=== PATIENT | female | born 1970 | race Caucasian/White ===

== ENCOUNTER 2020-01-25 15:48 | Inpatient (IN) ==
[2020-01-25] MEDS ORDERED: Diclofenac Sodium [Voltaren] 4 GM TP PRN (23:25)
[2020-01-26] MEDS: Acetaminophen/Butalbital/CaffeineTABLET PO PRN ×3 (01:16→21:55)
[2020-01-26] MEDS: Furosemide 40 MG TABLET PO SCH ×2 (06:41→16:26)
[2020-01-26] MEDS ORDERED: BUPRENORPHINE SL SCH (09:00)
[2020-01-26] MEDS ORDERED: NALOXONE SL SCH (09:00)
[2020-01-26] MEDS: amLODIPine 5 MG TABLET PO SCH (09:19)
[2020-01-26] MEDS: Cyanocobalamin (B-12) 1,000 MCG TABLET PO SCH (09:19)
[2020-01-26] MEDS: predniSONE 10 MG TABLET PO SCH (09:19)
[2020-01-26] MEDS: tiZANidine 4 MG TABLET PO SCH ×4 (09:19→20:44)
[2020-01-26] MEDS: Gabapentin 300 MG CAPSULE PO SCH ×3 (09:19→20:45)
[2020-01-26] MEDS: Divalproex (24 HR) 250 MG TABLET PO SCH ×2 (09:19→20:44)
[2020-01-26] MEDS: FLUoxetine 20 MG CAPSULE PO SCH (09:19)
[2020-01-26] MEDS: Cholecalciferol (D-3) 1,000 UNIT (25MCG) TABLET PO SCH (09:19)
[2020-01-26] MEDS ORDERED: D5% in Water 1,000 ML IVC PRN (13:10)
[2020-01-26] MEDS ORDERED: Dextrose Gel 15 GM/37.5 ML TUBE PO PRN ×2 (13:10)
[2020-01-26] MEDS ORDERED: *HR* Dextrose 50 % in Water (Vial) 50 ML VIAL IVP PRN (13:10)
[2020-01-26] MEDS: Insulin LISPRO 300 UNITS/3 ML VIAL SQ SCH (16:24)
[2020-01-26] MEDS: BUPRENORPHINE SL SCH ×2 (16:32→20:44)
[2020-01-26] MEDS: NALOXONE SL SCH ×2 (16:32→20:44)
[2020-01-26] MEDS: Ipratropium/Albuterol Neb 3 ML IH SCH ×2 (17:41→20:17)
[2020-01-26] MEDS: Budesonide/Formoterol 160/4.5 1 PUFF INH IH SCH (20:18)
[2020-01-26] MEDS: QUEtiapine Fumarate 25 MG TABLET PO PRN (20:44)
[2020-01-26] MEDS: Melatonin 3 MG TABLET PO SCH (20:45)
[2020-01-26] MEDS: OLANZapine 5 MG TAB.RAPDIS PO SCH (20:45)
[2020-01-27] MEDS: Insulin LISPRO 300 UNITS/3 ML VIAL SQ SCH ×3 (07:51→16:39)
[2020-01-27] MEDS ORDERED: Lactulose Oral Soln 20 GM/30 ML UDC PO PRN (07:52)
[2020-01-27] MEDS: NALOXONE SL SCH ×3 (08:49→20:33)
[2020-01-27] MEDS: BUPRENORPHINE SL SCH ×3 (08:49→20:33)
[2020-01-27] MEDS: Nicotine 14 MG PATCH.TD24 TD SCH (08:50)
[2020-01-27] MEDS: Divalproex (24 HR) 250 MG TABLET PO SCH ×2 (08:51→20:33)
[2020-01-27] MEDS: Gabapentin 300 MG CAPSULE PO SCH ×3 (08:51→20:30)
[2020-01-27] MEDS: Cyanocobalamin (B-12) 1,000 MCG TABLET PO SCH (08:51)
[2020-01-27] MEDS: amLODIPine 5 MG TABLET PO SCH (08:51)
[2020-01-27] MEDS: predniSONE 10 MG TABLET PO SCH (08:51)
[2020-01-27] MEDS: Nystatin POWDER 30 GM BOTTLE TP SCH ×2 (08:52→20:34)
[2020-01-27] MEDS: Furosemide 40 MG TABLET PO SCH ×2 (08:52→16:38)
[2020-01-27] MEDS: FLUoxetine 20 MG CAPSULE PO SCH (08:52)
[2020-01-27] MEDS: tiZANidine 4 MG TABLET PO SCH ×4 (08:52→20:31)
[2020-01-27] MEDS: Cholecalciferol (D-3) 1,000 UNIT (25MCG) TABLET PO SCH (08:52)
[2020-01-27] MEDS: Budesonide/Formoterol 160/4.5 1 PUFF INH IH SCH ×2 (11:31→22:31)
[2020-01-27] MEDS: Ondansetron ODT 4 MG TAB.RAPDIS PO PRN ×2 (13:18→21:40)
[2020-01-27] MEDS: Acetaminophen/Butalbital/CaffeineTABLET PO PRN ×2 (13:18→21:40)
[2020-01-27] MEDS: Melatonin 3 MG TABLET PO SCH (20:31)
[2020-01-27] MEDS: OLANZapine 5 MG TAB.RAPDIS PO SCH (20:31)
[2020-01-27] MEDS: QUEtiapine Fumarate 25 MG TABLET PO PRN (20:32)
[2020-01-28] MEDS: Insulin LISPRO 300 UNITS/3 ML VIAL SQ SCH ×3 (09:32→16:40)
[2020-01-28] MEDS: Nicotine 14 MG PATCH.TD24 TD SCH (09:57)
[2020-01-28] MEDS: Furosemide 40 MG TABLET PO SCH ×2 (09:58→16:32)
[2020-01-28] MEDS: Cholecalciferol (D-3) 1,000 UNIT (25MCG) TABLET PO SCH (09:58)
[2020-01-28] MEDS: tiZANidine 4 MG TABLET PO SCH ×4 (09:59→21:21)
[2020-01-28] MEDS: Divalproex (24 HR) 250 MG TABLET PO SCH ×2 (09:59→21:20)
[2020-01-28] MEDS: predniSONE 10 MG TABLET PO SCH (09:59)
[2020-01-28] MEDS: amLODIPine 5 MG TABLET PO SCH (09:59)
[2020-01-28] MEDS: FLUoxetine 20 MG CAPSULE PO SCH (09:59)
[2020-01-28] MEDS: Gabapentin 300 MG CAPSULE PO SCH ×3 (09:59→21:19)
[2020-01-28] MEDS: Cyanocobalamin (B-12) 1,000 MCG TABLET PO SCH (09:59)
[2020-01-28] MEDS: NALOXONE SL SCH ×3 (10:01→21:28)
[2020-01-28] MEDS: Nystatin POWDER 30 GM BOTTLE TP SCH ×2 (10:01→21:21)
[2020-01-28] MEDS: BUPRENORPHINE SL SCH ×3 (10:01→21:28)
[2020-01-28] MEDS: Budesonide/Formoterol 160/4.5 1 PUFF INH IH SCH ×2 (10:20→20:29)
[2020-01-28] MEDS: Melatonin 3 MG TABLET PO SCH (21:20)
[2020-01-28] MEDS: OLANZapine 5 MG TAB.RAPDIS PO SCH (21:21)
[2020-01-28] MEDS: QUEtiapine Fumarate 25 MG TABLET PO PRN (21:28)
[2020-01-28] MEDS: Acetaminophen/Butalbital/CaffeineTABLET PO PRN (23:14)
[2020-01-29 06:36] LABS: Hematocrit 33.3 % (35.3-44.9); Hemoglobin 10.2 g/dL (11.5-15.4); Mean Corpuscular HGB Conc 30.6 g/dL (31.6-35.5); Mean Corpuscular Hemoglobin 26.5 pg (28.0-33.3); Mean Corpuscular Volume 86.5 fL (83.0-100.0); Mean Platelet Volume 9.8 fL (9.4-12.4); Platelet Count 315 K/mcL (140-400); Red Blood Count 3.85 M/mcL (3.82-4.97); Red Cell Distribution Width 17.7 % (11.5-14.5); White Blood Count 6.9 K/mcL (4.3-11.1)
[2020-01-29 06:54] LABS: BUN/Creatinine Ratio 32 (6-26); Blood Urea Nitrogen 25 mg/dL (6-20); Calcium 9.4 mg/dL (8.6-10.3); Carbon Dioxide 38 mEq/L (23-29); Chloride 97 mEq/L (98-107); Glucose 94 mg/dL (70-105); Magnesium 2.2 mg/dL (1.6-2.6); Osmolality,Calculated 298 (280-300); Potassium 4.1 mEq/L (3.5-5.1); Sodium 142 mEq/L (136-145); eGFR For African Americans > 60 (> 60); eGFR For Non-African Americans > 60 (> 60)
[2020-01-29] MEDS: Insulin LISPRO 300 UNITS/3 ML VIAL SQ SCH ×3 (07:53→16:22)
[2020-01-29] MEDS: BUPRENORPHINE SL SCH ×3 (09:04→20:31)
[2020-01-29] MEDS: NALOXONE SL SCH ×3 (09:04→20:31)
[2020-01-29] MEDS: Nicotine 14 MG PATCH.TD24 TD SCH (09:04)
[2020-01-29] MEDS: Furosemide 40 MG TABLET PO SCH ×2 (09:05→16:21)
[2020-01-29] MEDS: tiZANidine 4 MG TABLET PO SCH ×4 (09:05→20:19)
[2020-01-29] MEDS: Gabapentin 300 MG CAPSULE PO SCH ×3 (09:05→20:20)
[2020-01-29] MEDS: amLODIPine 5 MG TABLET PO SCH (09:05)
[2020-01-29] MEDS: FLUoxetine 20 MG CAPSULE PO SCH (09:05)
[2020-01-29] MEDS: Cholecalciferol (D-3) 1,000 UNIT (25MCG) TABLET PO SCH (09:06)
[2020-01-29] MEDS: Divalproex (24 HR) 250 MG TABLET PO SCH ×2 (09:06→20:19)
[2020-01-29] MEDS: Nystatin POWDER 30 GM BOTTLE TP SCH ×2 (09:07→20:29)
[2020-01-29] MEDS: Cyanocobalamin (B-12) 1,000 MCG TABLET PO SCH (09:07)
[2020-01-29] MEDS: Budesonide/Formoterol 160/4.5 1 PUFF INH IH SCH ×2 (09:19→22:14)
[2020-01-29] MEDS: OLANZapine 5 MG TAB.RAPDIS PO SCH (20:20)
[2020-01-29] MEDS: QUEtiapine Fumarate 25 MG TABLET PO PRN (20:20)
[2020-01-29] MEDS: Melatonin 3 MG TABLET PO SCH (20:23)
[2020-01-29] MEDS: Acetaminophen/Butalbital/CaffeineTABLET PO PRN (20:27)
[2020-01-30] MEDS: Insulin LISPRO 300 UNITS/3 ML VIAL SQ SCH ×3 (08:52→17:09)
[2020-01-30] MEDS: tiZANidine 4 MG TABLET PO SCH ×4 (08:53→20:47)
[2020-01-30] MEDS: amLODIPine 5 MG TABLET PO SCH (08:53)
[2020-01-30] MEDS: Nystatin SUSP 5 ML UD.LIQ PO SCH ×4 (08:53→20:46)
[2020-01-30] MEDS: FLUoxetine 20 MG CAPSULE PO SCH (08:53)
[2020-01-30] MEDS: Gabapentin 300 MG CAPSULE PO SCH ×3 (08:53→20:46)
[2020-01-30] MEDS: Cholecalciferol (D-3) 1,000 UNIT (25MCG) TABLET PO SCH (08:53)
[2020-01-30] MEDS: NALOXONE SL SCH ×3 (08:53→20:57)
[2020-01-30] MEDS: Budesonide/Formoterol 160/4.5 1 PUFF INH IH SCH ×2 (08:53→20:56)
[2020-01-30] MEDS: BUPRENORPHINE SL SCH ×3 (08:53→20:57)
[2020-01-30] MEDS: Furosemide 40 MG TABLET PO SCH ×2 (08:53→17:48)
[2020-01-30] MEDS: Nicotine 14 MG PATCH.TD24 TD SCH (08:54)
[2020-01-30] MEDS: Nystatin POWDER 30 GM BOTTLE TP SCH ×2 (08:54→20:47)
[2020-01-30] MEDS: Divalproex (24 HR) 250 MG TABLET PO SCH ×2 (08:54→20:43)
[2020-01-30] MEDS: Cyanocobalamin (B-12) 1,000 MCG TABLET PO SCH (08:54)
[2020-01-30] MEDS: Aspirin Enteric Coated 81 MG Tablet PO SCH (10:56)
[2020-01-30] MEDS: Melatonin 3 MG TABLET PO SCH (20:46)
[2020-01-30] MEDS: OLANZapine 5 MG TAB.RAPDIS PO SCH (20:47)
[2020-01-30] MEDS: Acetaminophen/Butalbital/CaffeineTABLET PO PRN (20:57)
[2020-01-30] MEDS: QUEtiapine Fumarate 25 MG TABLET PO PRN (20:57)
[2020-01-31] MEDS: Cyanocobalamin (B-12) 1,000 MCG TABLET PO SCH (08:23)
[2020-01-31] MEDS: FLUoxetine 20 MG CAPSULE PO SCH (08:23)
[2020-01-31] MEDS: amLODIPine 5 MG TABLET PO SCH (08:23)
[2020-01-31] MEDS: Divalproex (24 HR) 250 MG TABLET PO SCH ×2 (08:24→20:48)
[2020-01-31] MEDS: Gabapentin 300 MG CAPSULE PO SCH ×3 (08:24→20:49)
[2020-01-31] MEDS: Aspirin Enteric Coated 81 MG Tablet PO SCH (08:24)
[2020-01-31] MEDS: Cholecalciferol (D-3) 1,000 UNIT (25MCG) TABLET PO SCH (08:24)
[2020-01-31] MEDS: tiZANidine 4 MG TABLET PO SCH ×4 (08:24→20:49)
[2020-01-31] MEDS: Furosemide 40 MG TABLET PO SCH ×2 (08:24→17:08)
[2020-01-31] MEDS: Nicotine 14 MG PATCH.TD24 TD SCH (08:24)
[2020-01-31] MEDS: NALOXONE SL SCH ×3 (08:25→20:49)
[2020-01-31] MEDS: Insulin LISPRO 300 UNITS/3 ML VIAL SQ SCH ×3 (08:25→17:08)
[2020-01-31] MEDS: Nystatin SUSP 5 ML UD.LIQ PO SCH ×4 (08:25→22:09)
[2020-01-31] MEDS: Nystatin POWDER 30 GM BOTTLE TP SCH ×2 (08:25→20:53)
[2020-01-31] MEDS: BUPRENORPHINE SL SCH ×3 (08:25→20:49)
[2020-01-31] MEDS: Budesonide/Formoterol 160/4.5 1 PUFF INH IH SCH ×2 (09:51→19:14)
[2020-01-31] MEDS: Acetaminophen/Butalbital/CaffeineTABLET PO PRN (13:47)
[2020-01-31] MEDS: Melatonin 3 MG TABLET PO SCH (20:49)
[2020-01-31] MEDS: OLANZapine 5 MG TAB.RAPDIS PO SCH (20:49)
[2020-01-31] MEDS: QUEtiapine Fumarate 25 MG TABLET PO PRN (21:01)
[2020-02-01] MEDS: Acetaminophen/Butalbital/CaffeineTABLET PO PRN ×2 (00:29→20:36)
[2020-02-01 09:27] LABS: BUN/Creatinine Ratio 27 (6-26); Blood Urea Nitrogen 20 mg/dL (6-20); Calcium 9.4 mg/dL (8.6-10.3); Carbon Dioxide 34 mEq/L (23-29); Chloride 97 mEq/L (98-107); Glucose 102 mg/dL (70-105); Osmolality,Calculated 293 (280-300); Sodium 140 mEq/L (136-145); eGFR For African Americans > 60 (> 60); eGFR For Non-African Americans > 60 (> 60)
[2020-02-01] MEDS: amLODIPine 5 MG TABLET PO SCH (10:18)
[2020-02-01] MEDS: Cholecalciferol (D-3) 1,000 UNIT (25MCG) TABLET PO SCH (10:18)
[2020-02-01] MEDS: Gabapentin 300 MG CAPSULE PO SCH ×3 (10:19→20:37)
[2020-02-01] MEDS: tiZANidine 4 MG TABLET PO SCH ×4 (10:19→20:37)
[2020-02-01] MEDS: Cyanocobalamin (B-12) 1,000 MCG TABLET PO SCH (10:19)
[2020-02-01] MEDS: FLUoxetine 20 MG CAPSULE PO SCH (10:19)
[2020-02-01] MEDS: Furosemide 40 MG TABLET PO SCH ×2 (10:20→16:14)
[2020-02-01] MEDS: Aspirin Enteric Coated 81 MG Tablet PO SCH (10:20)
[2020-02-01] MEDS: Divalproex (24 HR) 250 MG TABLET PO SCH ×2 (10:20→20:37)
[2020-02-01] MEDS: Nystatin SUSP 5 ML UD.LIQ PO SCH ×4 (10:20→20:38)
[2020-02-01] MEDS: BUPRENORPHINE SL SCH ×3 (10:21→20:37)
[2020-02-01] MEDS: Nicotine 14 MG PATCH.TD24 TD SCH (10:21)
[2020-02-01] MEDS: NALOXONE SL SCH ×3 (10:21→20:37)
[2020-02-01] MEDS: Budesonide/Formoterol 160/4.5 1 PUFF INH IH SCH ×2 (10:23→20:47)
[2020-02-01] MEDS: Insulin LISPRO 300 UNITS/3 ML VIAL SQ SCH ×3 (10:43→16:25)
[2020-02-01] MEDS: Nystatin POWDER 30 GM BOTTLE TP SCH ×2 (10:46→20:38)
[2020-02-01] MEDS: QUEtiapine Fumarate 25 MG TABLET PO PRN (20:36)
[2020-02-01] MEDS: OLANZapine 5 MG TAB.RAPDIS PO SCH (20:36)
[2020-02-01] MEDS: Melatonin 3 MG TABLET PO SCH (20:37)
[2020-02-02] MEDS: Budesonide/Formoterol 160/4.5 1 PUFF INH IH SCH ×2 (08:04→21:17)
[2020-02-02] MEDS: Insulin LISPRO 300 UNITS/3 ML VIAL SQ SCH ×3 (09:15→16:03)
[2020-02-02] MEDS: Aspirin Enteric Coated 81 MG Tablet PO SCH (09:27)
[2020-02-02] MEDS: Divalproex (24 HR) 250 MG TABLET PO SCH ×2 (09:27→20:36)
[2020-02-02] MEDS: Gabapentin 300 MG CAPSULE PO SCH ×3 (09:27→20:34)
[2020-02-02] MEDS: FLUoxetine 20 MG CAPSULE PO SCH (09:27)
[2020-02-02] MEDS: Cholecalciferol (D-3) 1,000 UNIT (25MCG) TABLET PO SCH (09:27)
[2020-02-02] MEDS: Nystatin POWDER 30 GM BOTTLE TP SCH ×2 (09:28→20:38)
[2020-02-02] MEDS: tiZANidine 4 MG TABLET PO SCH ×5 (09:28→20:57)
[2020-02-02] MEDS: Cyanocobalamin (B-12) 1,000 MCG TABLET PO SCH (09:28)
[2020-02-02] MEDS: amLODIPine 5 MG TABLET PO SCH (09:28)
[2020-02-02] MEDS: Furosemide 40 MG TABLET PO SCH ×2 (09:28→17:24)
[2020-02-02] MEDS: Nystatin SUSP 5 ML UD.LIQ PO SCH ×4 (09:29→20:38)
[2020-02-02] MEDS: Nicotine 14 MG PATCH.TD24 TD SCH (09:29)
[2020-02-02] MEDS: BUPRENORPHINE SL SCH ×3 (09:42→20:34)
[2020-02-02] MEDS: NALOXONE SL SCH ×3 (09:42→20:34)
[2020-02-02] MEDS: OLANZapine 5 MG TAB.RAPDIS PO SCH (20:34)
[2020-02-02] MEDS: Melatonin 3 MG TABLET PO SCH (20:37)
[2020-02-02] MEDS: QUEtiapine Fumarate 25 MG TABLET PO PRN (21:00)
[2020-02-03] MEDS: Aspirin Enteric Coated 81 MG Tablet PO SCH (08:15)
[2020-02-03] MEDS: Furosemide 40 MG TABLET PO SCH ×2 (08:15→17:06)
[2020-02-03] MEDS: Gabapentin 300 MG CAPSULE PO SCH ×3 (08:15→19:48)
[2020-02-03] MEDS: Cholecalciferol (D-3) 1,000 UNIT (25MCG) TABLET PO SCH (08:15)
[2020-02-03] MEDS: amLODIPine 5 MG TABLET PO SCH (08:15)
[2020-02-03] MEDS: Divalproex (24 HR) 250 MG TABLET PO SCH ×2 (08:16→19:47)
[2020-02-03] MEDS: Cyanocobalamin (B-12) 1,000 MCG TABLET PO SCH (08:16)
[2020-02-03] MEDS: Nystatin SUSP 5 ML UD.LIQ PO SCH ×3 (08:16→12:25)
[2020-02-03] MEDS: Nicotine 14 MG PATCH.TD24 TD SCH (08:16)
[2020-02-03] MEDS: FLUoxetine 20 MG CAPSULE PO SCH (08:16)
[2020-02-03] MEDS: tiZANidine 4 MG TABLET PO SCH ×4 (08:16→19:47)
[2020-02-03] MEDS: Nystatin POWDER 30 GM BOTTLE TP SCH ×2 (08:17→19:48)
[2020-02-03] MEDS: NALOXONE SL SCH ×3 (08:17→19:47)
[2020-02-03] MEDS: Insulin LISPRO 300 UNITS/3 ML VIAL SQ SCH ×3 (08:17→17:06)
[2020-02-03] MEDS: BUPRENORPHINE SL SCH ×3 (08:17→19:47)
[2020-02-03] MEDS: Budesonide/Formoterol 160/4.5 1 PUFF INH IH SCH ×2 (11:06→22:33)
[2020-02-03] MEDS: Ondansetron ODT 4 MG TAB.RAPDIS PO PRN (17:53)
[2020-02-03] MEDS: Melatonin 3 MG TABLET PO SCH (19:47)
[2020-02-03] MEDS: QUEtiapine Fumarate 25 MG TABLET PO PRN (19:48)
[2020-02-03] MEDS: OLANZapine 5 MG TAB.RAPDIS PO SCH (19:48)
[2020-02-03] MEDS: Acetaminophen/Butalbital/CaffeineTABLET PO PRN (19:55)
[2020-02-04] MEDS ORDERED: Acetaminophen 325 MG TABLET PO ONE (04:09)
[2020-02-04] MEDS: Insulin LISPRO 300 UNITS/3 ML VIAL SQ SCH ×2 (07:31→11:10)
[2020-02-04 07:33] VITALS: BP 150/78
[2020-02-04] MEDS: Aspirin Enteric Coated 81 MG Tablet PO SCH (08:22)
[2020-02-04] MEDS: NALOXONE SL SCH (08:22)
[2020-02-04] MEDS: Cholecalciferol (D-3) 1,000 UNIT (25MCG) TABLET PO SCH (08:22)
[2020-02-04] MEDS: FLUoxetine 20 MG CAPSULE PO SCH (08:22)
[2020-02-04] MEDS: BUPRENORPHINE SL SCH (08:22)
[2020-02-04] MEDS: Gabapentin 300 MG CAPSULE PO SCH (08:22)
[2020-02-04] MEDS: tiZANidine 4 MG TABLET PO SCH (08:23)
[2020-02-04] MEDS: Furosemide 40 MG TABLET PO SCH (08:23)
[2020-02-04] MEDS: Nicotine 14 MG PATCH.TD24 TD SCH (08:23)
[2020-02-04] MEDS: Divalproex (24 HR) 250 MG TABLET PO SCH (08:23)
[2020-02-04] MEDS: amLODIPine 5 MG TABLET PO SCH (08:23)
[2020-02-04] MEDS: Cyanocobalamin (B-12) 1,000 MCG TABLET PO SCH (08:23)
[2020-02-04] MEDS: Nystatin POWDER 30 GM BOTTLE TP SCH (08:24)
[2020-02-04] MEDS: Budesonide/Formoterol 160/4.5 1 PUFF INH IH SCH (10:09)
== END 2020-02-04 14:15 | disposition home or self-care (01) | DRG 945 ==
LOC: INPPIK → OBSVTOIN 22:50 → INPPIK 01-30 17:12
PROVIDERS: ADMIT Family Medicine; ATTEND Family Medicine